=== PATIENT | female | born 1970 | race Caucasian/White ===

== ENCOUNTER → 2016-11-29 | Outpatient (CLI) | payer OTHER ==
--- NOTE | 2016-11-29 13:16 | MA ---
Screening Digital Mammogram Clinical Indications: Routine screening. Mother with history breast cancer at age 44 and grandmother at age 70. Technique: Standard cephalocaudal and mediolateral oblique projections are obtained. This examinatio n is processed by the [facility] computer aided detection system. Comparison: November 24, 2015; October 26, 2014; and studies dating back to December 17, 2008. Breast density: C; The breasts are heterogeneously dense, which may obscure small masses. Findings: CAD was reviewed. Within the upper outer central right breast, there are 2 adjacent develop ing nodules. The margins are incompletely visualized secondary to adjacent dense breast parenchymal t issue. Additionally, within the inferior left breast at the 6 o'clock position as well as 7 to 8 o'cl ock position there are additional possible developing nodules versus overlapping breast parenchymal t issue. No additional masses are seen within either breast. There are no significant clusters of micro calcifications. The axilla are clear. Impression: Possible developing nodules versus overlapping breast parenchymal tissue upper outer cent ral right breast and lower left breast. Recommendation: Compression is recommended of the left breast in CC and mediolateral oblique projecti ons, as well as a 90-degree lateral view for further characterization. If findings are persistent, c onsider ultrasound, as well. Ultrasound without additional mammographic views are recommended of the right breast. Additional imaging evaluation bilaterally is needed. BI-RADS 0. Dense mammographic pattern limits the sensitivity of mammography in this patient. If there is a clini maame palpable abnormality, recommend additional imaging with ultrasound if clinically indicated. [facility] will send a result letter to the patient. Negative mammography should not preclude additional workup of a clinically suspicious finding. The patient's information is entered into a reminder system with a target due date for her next mammo gram.
== END ==
LOC: CIMAGING 08:37
DX: Z12.31 Encounter for screening mammogram for malignant neoplasm of breast (principal); Z80.3 Family history of malignant neoplasm of breast
CPT/HCPCS: G0202

== ENCOUNTER → 2016-12-11 | Outpatient (CLI) | payer OTHER ==
--- NOTE | 2016-12-11 13:45 | MA ---
Left Unilateral Digital Diagnostic Mammogram History: Left breast asymmetries on screening mammograms. Comparison: Mammograms through December 30, 2006. Technique: CC and mediolateral oblique spot compression views and a true lateral view were obtained. CC rolled medial and CC rolled lateral views were performed. Findings: The asymmetry in the outer left breast on the CC view does not persist with additional view s. There is a persistent focal asymmetry in the lower-inner left breast. No suspicious calcifications are present. Biopsy clip is noted in the upper-outer left breast. Impression: BI-RADS 0: Needs additional imaging evaluation. Recommendation: Ultrasound of the finding in the right breast on screening mammograms and lower-inne r left breast asymmetry that persisted on diagnostic mammograms. This will be performed later the . Please see ultrasound report and recommendations. [facility] will send a result letter to the patient.
--- NOTE | 2016-12-11 14:44 | US ---
Diagnostic Bilateral Breast Ultrasound History: Asymmetries on mammograms. Comparison: Diagnostic mammogram from the same day, screening mammogram of November 29, 2016. Technique: Limited grayscale and Doppler ultrasound in the region of mammographic abnormality is perf ormed. Real-time sonography is performed by the radiologist. Findings: Right breast: There are 2 simple cysts in the 10 o'clock right breast 5 cm from the nipple, correspon ding to the findings on screening mammograms. The largest measures 1.7 x 1.1 x 1.7 cm. An adjacent si mple cyst measures 8 x 7 x 9 mm. Numerous additional simple cysts are present. Left breast: There is a benign cluster of microcysts in the left breast at 8 o'clock 8 cm from the ni pple measuring 10 x 6 x 6 mm corresponding to mammographic asymmetry. Incidentally noted during real time ultrasound is a serpiginous circumscribed hypoechoic retroareolar structure in the left breast a t 1 o'clock measuring 7 x 4 x 11 mm. This is unrelated to the mammographic findings. Impression: Indeterminate serpiginous retroareolar left breast structure which could be related to a debris-filled duct or less likely a solid mass. BI-RADS 3: Probably Benign Findings. Recommendation: Six-month follow up left breast ultrasound is recommended for follow up of an indeter minate circumscribed retroareolar structure that could represent debris-filled ducts. The option of b iopsy versus follow up were discussed with the patient, who preferred ultrasound follow up. [facility] will send a result letter to the patient.
== END ==
LOC: CIMAGING 12:52
DX: R92.8 Other abnormal and inconclusive findings on diagnostic imaging of breast (principal)
CPT/HCPCS: 76641-PO; G0206

== ENCOUNTER → 2017-06-11 | Outpatient (CLI) | payer OTHER | LOC: CIMAGING 13:17 | PROVIDERS: ATTEND Family Medicine | DX: R92.8 Other abnormal and inconclusive findings on diagnostic imaging of breast (principal) | CPT/HCPCS: 76641-PO ==

== ENCOUNTER → 2018-01-01 | Outpatient (CLI) | payer OTHER | LOC: CIMAGING 12:13 | PROVIDERS: ATTEND Family Medicine | DX: Z09 Encounter for follow-up examination after completed treatment for conditions other than malignant neoplasm (principal); R92.8 Other abnormal and inconclusive findings on diagnostic imaging of breast | CPT/HCPCS: 76641-PO ==

== ENCOUNTER → 2018-01-29 | Outpatient (CLI) | payer OTHER ==
[~2018-01-29] MED LIST: BUPIVACAINE 0.5% 10 ML SDV ONE; LIDOCAINE 1% 300 MG/30 ML SDV ONE; THROMBIN (BOVINE) 5,000 UNIT VIAL TP ONE
== END ==
LOC: FIMAGING 07:20
PROVIDERS: ATTEND Family Medicine
PROC: 0HBU3ZX Excision of Left Breast, Percutaneous Approach, Diagnostic (ICD-10-PCS; principal; 2018-01-29)
DX: N60.12 Diffuse cystic mastopathy of left breast (principal)

== ENCOUNTER → 2018-10-22 | Outpatient (CLI) | payer OTHER ==
[~2018-10-22] MED LIST changes: -BUPIVACAINE 0.5% 10 ML SDV ONE; +BUPIVACAINE 0.5% 30 ML SDV ONE; -THROMBIN (BOVINE) 5,000 UNIT VIAL TP ONE
== END ==
LOC: FIMAGING 07:13
PROVIDERS: ATTEND Family Medicine
PROC: 0HBU3ZX Excision of Left Breast, Percutaneous Approach, Diagnostic (ICD-10-PCS; principal; 2018-10-22)
DX: D24.2 Benign neoplasm of left breast (principal); N62 Hypertrophy of breast

== ENCOUNTER → 2019-01-19 | Outpatient (CLI) | payer OTHER ==
[~2019-01-19] MED LIST changes: -BUPIVACAINE 0.5% 30 ML SDV ONE; +GADOBUTROL 10 ML VIAL IVP ONE; -LIDOCAINE 1% 300 MG/30 ML SDV ONE
== END ==
LOC: FIMAGING 11:49
PROVIDERS: ATTEND Surgery
DX: N63.10 Unspecified lump in the right breast, unspecified quadrant (principal); Z87.898 Personal history of other specified conditions
CPT/HCPCS: A9585; C8908

== ENCOUNTER → 2019-01-30 | Outpatient (CLI) | payer OTHER | LOC: FIMAGING 09:00 | PROVIDERS: ATTEND Surgery | DX: N60.01 Solitary cyst of right breast (principal); Z80.3 Family history of malignant neoplasm of breast ==